=== PATIENT | male | born 1935 | race African-American/Black ===

== ENCOUNTER 2017-01-25 12:49 | Emergency (ER) | payer MEDICARE ==
[~2017-01-25] VITALS: Ht 172.7 cm; Wt 62.0 kg
[~2017-01-25 12:49] MED LIST: BP MED; CHOL. MED; DIAB1.25 PO; POLY10O OU
[2017-01-25 13:15] VITALS: BP 144/74; PULSE 92; RESP 15
[2017-01-25] MEDS ORDERED: SODIUM CHLOR 0.9% 1000 ML INJ 1,000 ML IV ONE (13:21)
--- NOTE | 2017-01-25 13:26 | PD ---
HPI Chief Complaint: Syncope/Near-Syncope Time Seen by Provider: 13:15 Travel History International Travel<30 days: No Contact w/Intl Traveler<30days: No Traveled to known affect area: No History of Present Illness HPI This is an 82-year-old male with history of diabetes. He presents via EMS for evaluation of possible syncopal event. According to the patient he was mowing his grass with a self mowing swage tender from approximately 9 AM to 12:30 PM. He felt normal. He reports that his was in the garage doing crossword puzzles so he sat in a chair in order to be with her. He reports that he typically takes a nap around 1 PM and therefore he fell asleep in his chair. His was concerned that he may have had a syncopal event in the chair and so paramedics were called. The patient feels that he was probably just sleeping. He reports that he feels normal. He denies any lightheadedness or dizziness, headache, chest pain or shortness of breath, blurred vision, nausea or vomiting, weakness, abdominal pain, recent illness. He has no complaints at this time. [facility] Past Medical History Hypertension: Yes Past Surgical History Cholecystectomy: Yes Social History Alcohol Use: No Tobacco Use: No Allergies-Medications (Allergen,Severity, Reaction): Coded Allergies: No Known Allergies (Verified , 01/02/13) Reported Meds & Prescriptions Reported Meds & Active Scripts Active Polytrim Opth (Polymyxin/Trimethoprim Sulfate) 10 Ml Soln 1 Drop OU QID 7 Days Reported [Bp Med] [Chol. Med] Diabeta (Glyburide) 1.25 Mg Tab 5 Mg PO BID UNKNOWN DOSE Review of Systems Except as stated in HPI: all other systems reviewed are Neg Physical Exam Narrative GENERAL: Pleasant well-developed well-nourished male in no acute distress resting comfortably on stretcher. SKIN: Warm and dry. HEAD: Atraumatic. Normocephalic. EYES: Pupils equal and round. No scleral icterus. No injection or drainage. ENT: No nasal bleeding or discharge. Mucous membranes pink and moist. NECK: Trachea midline. No JVD. CARDIOVASCULAR: Regular rate and rhythm. No murmur appreciated. RESPIRATORY: No accessory muscle use. Clear to auscultation. Breath sounds equal bilaterally. GASTROINTESTINAL: Abdomen soft, non-tender, nondistended. Hepatic and splenic margins not palpable. MUSCULOSKELETAL: No obvious deformities. No clubbing. No cyanosis. No edema. NEUROLOGICAL: Awake and alert. No obvious cranial nerve deficits. Motor grossly within normal limits. Normal speech. PSYCHIATRIC: Appropriate mood and affect; insight and judgment normal. Data Data Last Documented VS Vital Signs Date Time Temp Pulse Resp B/P Pulse Ox O2 Delivery O2 Flow Rate FiO2 01/25/17 14:56 81 16 187/90 01/25/17 13:45 98.0 95 Orders Electrocardiogram (01/25/17 13:21) Complete Blood Count With Diff (01/25/17 13:21) Comprehensive Metabolic Panel (01/25/17 13:21) Magnesium (Mg) (01/25/17 13:21) Ckmb (Isoenzyme) Profile (01/25/17 13:21) Troponin I (01/25/17 13:21) Chest, Single Ap (01/25/17 13:21) Ecg Monitoring (01/25/17 13:21) Iv Access Insert/Monitor (01/25/17 13:21) Oximetry (01/25/17 13:21) Sodium Chloride 0.9% Flush (Ns Flush) (01/25/17 13:30) Sodium Chlor 0.9% 1000 Ml Inj (Ns 1000 M (01/25/17 13:21) Orthostatic Vital Signs (01/25/17 13:21) Labs Laboratory Tests Test 01/25/17 13:05 White Blood Count 9.6 TH/MM3 Red Blood Count 3.87 MIL/MM3 Hemoglobin 11.3 GM/DL Hematocrit 32.8 % Mean Corpuscular Volume 84.8 FL Mean Corpuscular Hemoglobin 29.3 PG Mean Corpuscular Hemoglobin 34.5 % Concent Red Cell Distribution Width 12.9 % Platelet Count 168 TH/MM3 Mean Platelet Volume 8.7 FL Neutrophils (%) (Auto) 74.3 % Lymphocytes (%) (Auto) 18.6 % Monocytes (%) (Auto) 5.8 % Eosinophils (%) (Auto) 0.6 % Basophils (%) (Auto) 0.7 % Neutrophils # (Auto) 7.2 TH/MM3 Lymphocytes # (Auto) 1.8 TH/MM3 Monocytes # (Auto) 0.6 TH/MM3 Eosinophils # (Auto) 0.1 TH/MM3 Basophils # (Auto) 0.1 TH/MM3 CBC Comment DIFF FINAL Differential Comment Sodium Level 143 MEQ/L Potassium Level 3.6 MEQ/L Chloride Level 109 MEQ/L Carbon Dioxide Level 27.4 MEQ/L Anion Gap 7 MEQ/L Blood Urea Nitrogen 16 MG/DL Creatinine 1.43 MG/DL Estimat Glomerular Filtration 57 ML/MIN Rate Random Glucose 76 MG/DL Calcium Level 8.6 MG/DL Magnesium Level 2.1 MG/DL Total Bilirubin 0.7 MG/DL Aspartate Amino Transf 20 U/L (AST/SGOT) Alanine Aminotransferase 19 U/L (ALT/SGPT) Alkaline Phosphatase 95 U/L Total Creatine Kinase 62 U/L Troponin I LESS THAN 0.02 NG/ML Total Protein 7.2 GM/DL Albumin 3.2 GM/DL [facility] Medical Decision Making Medical Screen Exam Complete: Yes Emergency Medical Condition: Yes Medical Record Reviewed: Yes Interpretation(s) EKG sinus rhythm with first-degree AV block CMP creatinine 1.43 otherwise unremarkable, troponin and CK negative chest x- ray normal Differential Diagnosis Normal examination versus orthostatic hypotension versus heat stroke versus dehydration versus electrolyte abnormality versus arrhythmia versus symptomatic anemia versus subarachnoid hemorrhage versus ACS versus aortic dissection Narrative Course 82-year-old male presents after having a possible syncopal event while sitting in a chair in his garage. He feels that he was probably taking a. He has no physical complaints. He does report that symptoms occurred after he spent 3-1/ 2 hours mowing the lawn with a self propelling lawnmower. He does not feel dizzy or lightheaded, having no chest pain or shortness of breath or any other physical symptoms. Plan is for basic lab work, EKG, ECG monitoring. He will be given IV fluids. He will be monitored closely. The patient's laboratory imaging studies have been reviewed and found to be very reassuring. He was monitored for some time here in the ED with no symptoms. The patient walked to the bathroom with no difficulty. Orthostatic vital signs were performed and they were unremarkable. At this point in time the plan to be to discharge the patient home with close follow-up to primary care and return for any new symptoms. He is agreeable with this plan. Procedures EKG Prior to Arrival: Yes Diagnosis Primary Impression: Encounter for medical screening examination Additional Instructions: Stay well-hydrated and well-nourished. Follow-up close with primary care physician. Return for any acutely new or worsening symptoms. Med/Other Pt SpecificInfo: No Change to Meds Disposition: 01 DISCHARGE HOME Condition: Stable Salbador Edmondson Jan 25, 2017 13:26
[2017-01-25] MEDS ORDERED: SODIUM CHLORIDE 0.9% FLUSH 10 ML FLUSH IVF PRN (13:30)
[2017-01-25 13:45] VITALS: TEMP 98; O2SAT 95
[2017-01-25 13:54] LABS: AUTOMATED NEUTROPHIL # 7.2 TH/MM3 (1.8-7.7); BASOPHIL # 0.1 TH/MM3 (0-0.2); BASOPHIL % 0.7 % (0.0-2.0); EOSINOPHIL # 0.1 TH/MM3 (0-0.4); EOSINOPHIL % 0.6 % (0.0-4.0); HEMATOCRIT 32.8 % (39.0-51.0); HEMO FLAGS DIFF FINAL; LYMPH % 18.6 % (9.0-44.0); LYMPHOCYTE # 1.8 TH/MM3 (1.0-4.8); MEAN CELL VOLUME 84.8 FL (80.0-100.0); MEAN CORPUSCULAR HEMOGLOBIN 29.3 PG (27.0-34.0); MEAN CORPUSCULAR HGB CONC 34.5 % (32.0-36.0); MONO % 5.8 % (0.0-8.0); NEUT % 74.3 % (16.0-70.0); PLATELET COUNT 168 TH/MM3 (150-450); RED BLOOD COUNT 3.87 MIL/MM3 (4.50-5.90); RED CELL DISTRIBUTION WIDTH 12.9 % (11.6-17.2); WHITE BLOOD COUNT 9.6 TH/MM3 (4.0-11.0)
[2017-01-25 14:07] LABS: ALT (GPT) 19 U/L (12-78); ANION GAP 7 MEQ/L (5-15); AST (GOT) 20 U/L (15-37); BICARBONATE 27.4 MEQ/L (21.0-32.0); BLOOD UREA NITROGEN 16 MG/DL (7-18); CHLORIDE 109 MEQ/L (98-107); GLOMERULAR FILTRATION RATE 57 ML/MIN (>89); MAGNESIUM 2.1 MG/DL (1.5-2.5); POTASSIUM 3.6 MEQ/L (3.5-5.1); SODIUM (NA) 143 MEQ/L (136-145)
[2017-01-25 14:11] LABS: ALKALINE PHOSPHATASE 95 U/L (45-117); TOTAL BILIRUBIN ADULT 0.7 MG/DL (0.2-1.0)
[2017-01-25 14:14] LABS: CREATINE KINASE 62 U/L (39-308)
--- NOTE | 2017-01-25 14:17 | RADRPT ---
EXAM DATE/TIME: 01/25/2017 13:46 [facility] COMPARISON: No previous studies available for comparison. INDICATIONS : Syncope, almost passed out today. MEDICAL HISTORY : None. SURGICAL HISTORY : None. ENCOUNTER: Initial ACUITY: 1 day PAIN SCORE: 0/10 LOCATION: Bilateral chest FINDINGS: A single view of the chest demonstrates the lungs to be symmetrically aerated without evidence of mas s, infiltrate or effusion. The cardiomediastinal contours are unremarkable. Osseous structures are intact. CONCLUSION: No acute disease. Renzo White MD on January 25, 2017 at 14:15 Board Certified Radiologist. This report was verified electronically.
[2017-01-25 14:56] VITALS: BP 187/90; RESP 16
--- NOTE | 2017-01-26 13:56 | EKG ---
Date Performed: 01/25/2017 Time Performed: 13:35:30 PTAGE: 82 years EKG: Sinus rhythm WITH FIRST DEGREE AV BLOCK [place] interval slightly longer than prior tracing ABNORMAL ECG PREVIOUS TRACING : 01/09/97 DOCTOR: Dangelo Sanchez Interpretating Date/Time 01/26/2017 13:55:27
== END 2017-01-25 15:19 | disposition home or self-care (01) ==
LOC: NEDAMB 12:49
DX: R55 Syncope and collapse (principal); I44.0 Atrioventricular block, first degree; R94.31 Abnormal electrocardiogram [ECG] [EKG]; I10 Essential (primary) hypertension; E11.9 Type 2 diabetes mellitus without complications; Z79.899 Other long term (current) drug therapy
CPT/HCPCS: 71010; 80053; 82550; 83735; 84484; 85025; 93005; 99285; J7030